=== PATIENT | female | born 1930 | race Caucasian/White ===

== ENCOUNTER 2018-02-12 12:42 | Emergency (ER) | payer MEDICAID, OTHER ==
[2018-02-12 12:59] VITALS: RESP 18; TEMP 98.1
--- NOTE | 2018-02-12 13:06 | EDPHY ---
H & P Stated Complaint: Fall from w/c, LTA Source: Patient, penitentiary records, Old records - Personal History Current Tetanus/Diphtheria Vaccine: Unsure Current Tetanus Diphtheria and Acellular Pertussis (TDAP): Unsure - Medical/Surgical History Other PMH: PMH: dementia Time Seen by Provider: 02/12/18 12:56 HPI/ROS: CHIEF COMPLAINT: Limited trauma activation, fall from wheelchair HISTORY OF PRESENT ILLNESS: The patient presents to the ED is limited trauma activation. The patient has a history of dementia and lives at a prison facility in [place]. She was recently placed in that facility following a hospitalization in [place]. The patient reportedly was started on Depakote recently for aggressive behavior. In the ED the patient is not a very reliable historian. She is unable to articulate her recent hospitalization or events surrounding her fall today. The patient does complain of a mild frontal headache. She denies any acute neck pain, back pain, chest pain or difficulty breathing. REVIEW OF SYSTEMS: A comprehensive 10 point review of systems is otherwise negative aside from elements mentioned in the history of present illness. (Lopez Bob) - Physical Exam Exam: General Appearance: Alert, no distress Head: 3 cm scalp laceration with mild soft tissue swelling Eyes: Pupils equal, round, reactive ENT, Mouth: No hemotympanum, no oral trauma Neck: In cervical collar, no midline tenderness Respiratory: No chest wall tender, subcutaneous air, lungs clear bilaterally Cardiovascular: Regular rate and rhythm Abdomen: Abdomen is soft and nontender, pelvis stable Skin: No lacerations, No abrasion Back: No midline T/L/S pain Extremities: Nontender, full range of motion Neurological: Alert and oriented x1, moves all 4 extremities with 5/5 strength (Lopez Bob) Constitutional: Initial Vital Signs Temperature (C) 36.7 C 02/12/18 12:45 Heart Rate 71 02/12/18 12:45 Respiratory Rate 18 02/12/18 12:45 Blood Pressure 166/77 H 02/12/18 12:45 O2 Sat (%) 97 02/12/18 12:45 O2 Delivery Mode Room Air Allergies/Adverse Reactions: codeine Allergy (Verified 02/12/18 12:59) Home Medications: Medication Instructions Recorded Depakote 02/12/18 Donepezil HCl 02/12/18 Namenda 10 mg 02/12/18 traZODone 02/12/18 Medical Decision Making - Diagnostics Imaging Results: Imaging Impressions Cervical Spine CT 02/12/18 12:57 Impression: 1. Scalp laceration and soft tissue swelling over the right frontal scalp. 2. Moderately advanced senescent features, with no acute intracranial abnormality identified on this unenhanced CT evaluation. UNENHANCED CT SCAN OF THE CERVICAL SPINE Technique: A multidetector unenhanced helical CT scan was obtained from the clivus caudally through the upper thoracic spine, with images reformatted at 1.50 mm increments, and are reviewed in soft tissue, bone, and lung windows. Parasagittal and paracoronal reconstructed images are reviewed on the workstation. The DFOV is 13.5 cm. A dose reduction protocol was used. Findings: The cervical vertebral body heights and posterior alignments are preserved. There is a mild levocervical curvature. There is no acute fracture, or facet malalignment. The interspinous distances are normal. The craniocervical junction is normal. The predental space, and the atlantoaxial lateral mass alignment is normal. The base and the tip of the dens are normal. There is no paravertebral or epidural hematoma identified. There is degenerative disk space narrowing at C2-C3, C3-C4, and C5-C6, with moderate bilateral facet hypertrophy at C3-C4 and C4-C5, and mild to moderate hypertrophy at C5-C6 with uncovertebral degenerative spondylosis. There is also some accompanying neural foraminal stenosis, most pronounced at C5-C6 where there is moderate right and tipikbgo-np-[id number] left neural foraminal narrowing. The prevertebral soft tissues are normal. There is biapical pleural parenchymal fibrosis. Impression: Advanced degenerative features of the spine, with no acute cervical osseous abnormality. If there is further clinical concern regarding the patient's symptoms, correlative MR imaging could be considered, if otherwise not contraindicated. Findings were discussed with Lopez Bob MD at 13:54, on 02/12/2018. Head CT 02/12/18 12:57 Impression: 1. Scalp laceration and soft tissue swelling over the right frontal scalp. 2. Moderately advanced senescent features, with no acute intracranial abnormality identified on this unenhanced CT evaluation. UNENHANCED CT SCAN OF THE CERVICAL SPINE Technique: A multidetector unenhanced helical CT scan was obtained from the clivus caudally through the upper thoracic spine, with images reformatted at 1.50 mm increments, and are reviewed in soft tissue, bone, and lung windows. Parasagittal and paracoronal reconstructed images are reviewed on the workstation. The DFOV is 13.5 cm. A dose reduction protocol was used. Findings: The cervical vertebral body heights and posterior alignments are preserved. There is a mild levocervical curvature. There is no acute fracture, or facet malalignment. The interspinous distances are normal. The craniocervical junction is normal. The predental space, and the atlantoaxial lateral mass alignment is normal. The base and the tip of the dens are normal. There is no paravertebral or epidural hematoma identified. There is degenerative disk space narrowing at C2-C3, C3-C4, and C5-C6, with moderate bilateral facet hypertrophy at C3-C4 and C4-C5, and mild to moderate hypertrophy at C5-C6 with uncovertebral degenerative spondylosis. There is also some accompanying neural foraminal stenosis, most pronounced at C5-C6 where there is moderate right and kiuiqxxk-ng-tsewrv left neural foraminal narrowing. The prevertebral soft tissues are normal. There is biapical pleural parenchymal fibrosis. Impression: Advanced degenerative features of the spine, with no acute cervical osseous abnormality. If there is further clinical concern regarding the patient's symptoms, correlative MR imaging could be considered, if otherwise not contraindicated. Findings were discussed with Lopez Bob MD at 13:54, on 02/12/2018. Procedures: Procedure: Laceration repair. Verbal consent was obtained from the patient. The 3 cm, simple, deep laceration middle forehead was anesthetized in the usual fashion using 4 mL of 0.5% bupivacaine with epinephrine. The wound was irrigated, draped and explored to its base with a gloved finger. There were no deep structures involved. No tendon injury was identified. The wound was repaired with #5, 4- 0 Vicryl. Good hemostasis was achieved and patient tolerated procedure well. The procedure was performed by myself. Sutures do not need to be removed as they are absorbable. (Carissa Valencia) ED Course/Re-evaluation: The patient presents to the ED after mechanical fall at her prison facility. She does have a 3 cm laceration on her forehead. The patient appears to be at her neurologic baseline in reviewing her records. She is confused but without acute complaints. After getting the results of the patient's CT scan I have cleared her cervical spine. The patient's laceration will be repaired by the physician program assistant. (Lopez Bob) Differential Diagnosis: Differential diagnosis considered includes intracranial hemorrhage, skull fracture, laceration, metabolic abnormality, Depakote toxicity (Lopez Bob ) - Data Points Laboratory Results: Laboratory Results 02/12/18 13:00 02/12/18 13:00 02/12/18 02/12/18 02/12/18 13:00 13:00 13:00 WBC 12.27 10^3/uL H 10^3/uL (3.80-9.50) RBC 4.45 10^6/uL 10^6/uL (4.18-5.33) Hgb 14.6 g/dL g/dL (12.6-16.3) Hct 44.9 % % (38.0-47.0) MCV 100.9 fL H fL (81.5-99.8) MCH 32.8 pg pg (27.9-34.1) MCHC 32.5 g/dL g/dL (32.4-36.7) RDW 12.9 % % (11.5-15.2) Plt Count 157 10^3/uL 10^3/uL (150-400) MPV 11.7 fL fL (8.7-11.7) Neut % (Auto) 77.9 % H % (39.3-74.2) Lymph % (Auto) 9.9 % L % (15.0-45.0) [place] % (Auto) 10.5 % % (4.5-13.0) Eos % (Auto) 0.8 % % (0.6-7.6) Baso % (Auto) 0.2 % L % (0.3-1.7) Nucleat RBC Rel Count 0.0 % % (0.0-0.2) Absolute Neuts (auto) 9.55 10^3/uL H 10^3/uL (1.70-6.50) Absolute Lymphs (auto) 1.21 10^3/uL 10^3/uL (1.00-3.00) Absolute Monos (auto) 1.29 10^3/uL H 10^3/uL (0.30-0.80) Absolute Eos (auto) 0.10 10^3/uL 10^3/uL (0.03-0.40) Absolute Basos (auto) 0.03 10^3/uL 10^3/uL (0.02-0.10) Absolute Nucleated RBC 0.00 10^3/uL 10^3/uL (0-0.01) Immature Gran % 0.7 % % (0.0-1.1) Immature Gran # 0.09 10^3/uL 10^3/uL (0.00-0.10) Sodium 152 mEq/L H mEq/L (135-145) Potassium 3.3 mEq/L L mEq/L (3.5-5.2) Chloride 111 mEq/L H mEq/L (97-110) Carbon Dioxide 31 mEq/l mEq/l (22-31) Anion Gap 10 mEq/L mEq/L (8-16) BUN 22 mg/dL mg/dL (7-23) Creatinine 1.3 mg/dL H mg/dL (0.6-1.0) Estimated GFR 39 Glucose 104 mg/dL H mg/dL (70-100) Calcium 11.3 mg/dL H mg/dL (8.5-10.4) Phosphorus 2.2 mg/dL L mg/dL (2.5-4.5) Valproic Acid 118.7 mcg/mL mcg/mL (50.0-150.0) Medications Given: Discontinued Medications Sodium Chloride (Ns) 1,000 mls @ 0 mls/hr IV EDNOW ONE; Wide Open PRN Reason: Protocol Stop: 02/12/18 14:27 Last Admin: 02/12/18 14:36 Dose: Not Given Departure - Departure Disposition: Home, Routine, Self-Care Clinical Impression: Forehead laceration, Fall Condition: Good Instructions: Laceration (ED) Additional Instructions: 1. Your CT scan demonstrates no evidence of fracture or bleed. 2. You had self-dissolving sutures placed in the emergency department. 3. Please try and increase your fluid intake as there is evidence of mild dehydration. 4. Please follow-up with your primary care provider as scheduled. 5. Please return to the ED for any vomiting, abnormal behavior, new pain or other concerns. Referrals: CORINA JOHANSEN [Other] - As per Instructions
[2018-02-12 13:30] LABS: PLATELET COUNT 157 10^3/uL (150-400)
[2018-02-12 14:07] VITALS: BP 133/76; PULSE 80; O2SAT 93
[2018-02-12] MEDS ORDERED: NS 1,000 ML IV ONE (14:26)
--- NOTE | 2018-02-12 15:57 | ASMTCMCOM ---
CM Note CM Note Notes: Pt arrived to ED, from [facility], as a Limited Trauma Activation after falling out of her wheelchair. Pt currently disoriented & unable to clearly communicate. Spoke with Екатерина, at [facility]; confirmed pt is currently there doing rehab & will eventually transition into snf care. Екатерина reports pt has a daughter/MDPOA, Lizbeth Miranda. Екатерина provided this CM with Lizbeth's number ([phone]); attempted to call number but it was disconnected. Alerted Екатерина; Екатерина reports that is the only number [facility] has on file for Lizbeth. Екатерина to update Lizbeth that pt was seen, at [facility] ED, once she is able to make contact. Екатерина also reports pt was recently started on Depakote 500 mg TID for "behaviors". Updated RN & MD. Date Signed: 02/12/2018 03:55 PM Electronically Signed By:Padma Cueto RN
== END 2018-02-12 15:45 | disposition home or self-care (01) ==
DX: S01.81XA Laceration without foreign body of other part of head, initial encounter (principal); W05.0XXA Fall from non-moving wheelchair, initial encounter; Y92.128 Other place in nursing home as the place of occurrence of the external cause
CPT/HCPCS: G0390

== ENCOUNTER 2018-03-02 11:52 | Emergency (ER) | payer OTHER ==
--- NOTE | 2018-03-02 13:09 | EDPHY ---
H & P Stated Complaint: [facility] fall Time Seen by Provider: 03/02/18 13:02 HPI/ROS: CHIEF COMPLAINT: Fall HISTORY OF PRESENT ILLNESS: The patient is an 87-year-old female history of dementia was currently on hospice. She fell today and has a laceration to her left eyebrow as well as skin tear to her left cheek and left forearm. She is here with her hospice who is requesting that we do not do any diagnostic testing but simply clean and dress her wounds and sutured her eyebrow. The patient is at her baseline mental status. She is not on any blood thinners. No recent illness. REVIEW OF SYSTEMS: Unable to obtain secondary to condition EXAM: GENERAL: Well-appearing, well-nourished and in no acute distress. HEAD: Atraumatic other than eyebrow laceration, normocephalic. EYES: Pupils equal round and reactive to light, extraocular movements intact, sclera anicteric, conjunctiva are normal. ENT: TMs normal, nares patent, oropharynx clear without exudates. Moist mucous membranes. NECK: Normal range of motion, supple without lymphadenopathy or JVD. LUNGS: Breath sounds clear to auscultation bilaterally and equal. No wheezes rales or rhonchi. HEART: Regular rate and rhythm without murmurs, rubs or gallops. ABDOMEN: Soft, nontender, normoactive bowel sounds. No guarding, no rebound. No masses appreciated. BACK: No CVA tenderness, no spinal tenderness, step-offs or deformities EXTREMITIES: Normal range of motion, no pitting or edema. No clubbing or cyanosis. NEUROLOGICAL: Cranial nerves II through XII grossly intact. Nonverbal. Moving all extremities, normal sensation PSYCH: Nonverbal SKIN: Laceration left eyebrow, skin tear left cheek and left forearm. Source: Patient Exam Limitations: No limitations - Personal History Current Tetanus Diphtheria and Acellular Pertussis (TDAP): Unsure - Medical/Surgical History Hx Asthma: No Hx Chronic Respiratory Disease: No Hx Cirrhosis: No Hx Alcoholism: No Other PMH: PMH: dementia, CKD, dysphagia - Family History Significant Family History: No pertinent family hx - Social History Alcohol Use: Sober Drug Use: None Constitutional: Initial Vital Signs Temperature (C) 37 C 03/02/18 11:58 Heart Rate 68 04/10/18 11:58 Respiratory Rate 16 03/02/18 11:58 Blood Pressure 122/66 H 03/02/18 11:58 O2 Sat (%) 94 03/02/18 11:58 O2 Delivery Mode Room Air Allergies/Adverse Reactions: codeine Allergy (Verified 02/12/18 12:59) Home Medications: Medication Instructions Recorded Depakote 02/12/18 Donepezil HCl 02/12/18 Namenda 10 mg 02/12/18 traZODone 02/12/18 Medical Decision Making Procedures: Procedure: Laceration repair. Verbal consent was obtained from the patient. The 2 cm left eyebrow laceration was anesthetized with 1% lidocaine with epi and bicarbonate locally infiltrated. The wound was irrigated copiously according to protocol, draped and explored to its base. It was approximately 1 cm deep. There were no deep structures involved. No tendon, nerve, or vascular injury was identified when explored through full range of motion. No foreign body was identified. The wound was repaired with 5.0 chromic gut, 3 sutures, interrupted. The wound repair was moderate complexity with slight flap realignment and revision. The procedure was performed by myself. A dressing was then placed with sterile gauze and bacitracin. ED Course/Re-evaluation: The patient's laceration was repaired and skin tears were cleaned and dressed and antibiotic ointment placed. Her hospice nurse is at her bedside and confirms that they do not want any further testing done her treatment and that she is [facility]. They have also been on the phone with her family who agrees. She states that the patient is on hospice for severe Alzheimer's disease. Differential Diagnosis: Partial list of the Differential diagnosis considered include but were not limited to; laceration, skin tear, fall and although unlikely based on the history and physical exam, I also considered intracranial injury, cervical spine injury, infection, seizure. Departure - Departure Disposition: Home, Routine, Self-Care Clinical Impression: Skin tear of left upper extremity Laceration of eyebrow, left Qualifiers: Encounter type: initial encounter Qualified Code(s): S01.112A - Laceration without foreign body of left eyelid and periocular area, initial encounter Condition: Fair Instructions: Laceration (DC), Skin Tear (ED) Additional Instructions: Your sutures should dissolve within 5 days, if they do not return to have them removed. Referrals: Patient,NotPresent [Primary Care Provider] - As per Instructions
--- NOTE | 2018-03-02 15:14 | ASMTCMCOM ---
CM Note CM Note Notes: Pt presented to the ED via EMS from [facility] after having a fall in her room and hitting her head. Patient was just enrolled with [facility] yesterday. [facility]la [facility] at bedside with patient. Pt has Alzheimer's is AxOx1 and needs redirection in order for her to not try to get out bed or take off wound dressings, etc. This CM arranged NEMT stretcher transport through [facility] for pt to return to ; PCS completed, copy provided to EMS, original to be scanned into chart. CM available for further assistance if needed. Date Signed: 03/02/2018 03:13 PM Electronically Signed By:Sandy Boothe RN
--- NOTE | 2018-03-02 15:32 | ASDISCHSUM ---
Discharge Information Plan Status:SNF Medically Cleared to Leave: Discharge Date: D/C Disposition:Detention Facility ADT D/C Disposition:Home, Routine, Self-Care Projected Discharge Date: Transportation at D/C:ALS/BLS Discharge Delay Reason: Follow-Up Date: Discharge Slot: Final Diagnosis: Placement Information Patient Contact Information Contact Name:CHRISTIE Relationship:Daughter Address: Work Phone: City: [facility] Phone: State/Zip Code: Email: Financial Information Financial Class:Medicare Advantage [place] Records Primary Plan Desc:[employer] Primary Plan Number:[id number] Secondary Plan Desc:MEDICARE OUTPATIENT Secondary Plan Number:[id number] Assessment Information [facility] CM Progress Note CM Note CM Note Notes: Pt presented to the ED via EMS from [facility] after having a fall in her room and hitting her head. Patient was just enrolled with [facility] yesterday. Makayla, [facility] at bedside with patient. Pt has Alzheimer's is AxOx1 and needs redirection in order for her to not try to get out bed or take off wound dressings, etc. This CM arranged NEMT stretcher transport through [facility] for pt to return to ; PCS completed, copy provided to EMS, original to be scanned into chart. CM available for further assistance if needed. Date Signed: 03/02/2018 03:13 PM Electronically Signed By:Sandy Boothe RN Intervention Information Intervention Type:Transportation Date of Service:03/02/2018 03:27 PM Patient Type:Emergency Room Staff Member:KATHERINE Boothe, Sandy Hours:0.5 Discipline:Whirley Operator Severity: Comment:Arranged NEMT stretcher transport for pt to return to [facility]. PCS completed; copy given to EMS.
[2018-03-02 15:43] VITALS: BP 122/67
== END 2018-03-02 15:48 | disposition home or self-care (01) ==
LOC: EDUNIT#
PROC: 0HQ1XZZ Repair Face Skin, External Approach (ICD-10-PCS; principal; 2018-03-02)
DX: S01.112A Laceration without foreign body of left eyelid and periocular area, initial encounter (principal); S51.812A Laceration without foreign body of left forearm, initial encounter; W18.39XA Other fall on same level, initial encounter

== ENCOUNTER 2018-03-18 14:52 | Emergency (ER) | payer OTHER ==
--- NOTE | 2018-03-18 15:11 | EDPHY ---
H & P Stated Complaint: fall head lac - Personal History Current Tetanus/Diphtheria Vaccine: Yes Current Tetanus Diphtheria and Acellular Pertussis (TDAP): Yes - Medical/Surgical History Hx Asthma: No Hx Chronic Respiratory Disease: No Hx Diabetes: No Hx Cardiac Disease: No Hx Renal Disease: Yes Hx Cirrhosis: No Hx Alcoholism: No Hx HIV/AIDS: No Hx Splenectomy or Spleen Trauma: No Other PMH: PMH: dementia, CKD, dysphagia - Social History Smoking Status: Never smoked Time Seen by Provider: 03/18/18 15:10 Constitutional: Initial Vital Signs Temperature (C) 37.1 C 03/18/18 14:55 Heart Rate 68 03/18/18 14:55 Respiratory Rate 18 03/18/18 14:55 Blood Pressure 115/57 L 03/18/18 14:55 O2 Sat (%) 95 03/18/18 14:55 O2 Delivery Mode Room Air Allergies/Adverse Reactions: codeine Allergy (Verified 02/12/18 12:59) Home Medications: Medication Instructions Recorded Depakote 02/12/18 Medical Decision Making Procedures: Procedure: Laceration repair. I was requested by Dr. Britt to perform wound closure I explained the indications, risks and benefits for both laceration repair and anesthetic administration. Verbal consent was obtained from the patient . The laceration on the apex of scalp was anesthetized using 0.5% bupivicaine with epinephrine . After anesthetic administered the patient was observed for a period of time and had no apparent adverse effects. The wound was cleaned, prepped, draped in normal sterile fashion and explored to its base. No foreign body seen, no foreign bodies palpated. There were no deep structures involved. No galea defects identified The wound was repaired with 11 adis. The wound repair was complex. The procedure was performed by myself. Patient has been informed that scarring will occur, although efforts have been made to minimize this. (Chevy Cason) ED Course/Re-evaluation: CHIEF COMPLAINT: Fall, hit head HISTORY OF PRESENT ILLNESS: The patient is an 87 y/o female with a history of Alzheimer's disease and chronic kidney disease arriving for a head laceration. She is a hospice patient and has fallen several times in the past few months. Today, she stood up out of her wheelchair and fell, striking her head on the nurse's cart handle. She has a head laceration. She denies any other associated symptoms. She does not take anticoagulants. Information obtained from hospice nurse due to patient's Alzheimer disease. REVIEW OF SYSTEMS: A 10 point review of systems was performed and is negative with the exception of the elements mentioned in the history of present illness. PHYSICAL EXAM: HR, BP, O2 Sat, RR. Temp noted General Appearance: Alert, well hydrated, appropriate, and non-toxic appearing. Head: 4 cm in a zig-zag pattern to the top of the head Eyes: Pupils equal, round, reactive to light and accommodation, EOMI, no trauma , no injection. Ears: Clear bilaterally, no perforation, normal landmarks Nose: Atraumatic. Neck: Supple, no lymphadenopathy. Respiratory: No retractions, no distress, no wheezes, and no accessory muscle use. Cardiovascular: Regular rate and rhythm, no murmurs, rubs, or gallops. Gastrointestinal: Abdomen is soft, nontender, non-distended, no masses, no rebound, no guarding, no peritoneal signs. Musculoskeletal: Normal active ROM of all extremities, atraumatic. Neurological: Alert, appropriate, and interactive. Skin: No rashes, normal to visual inspection. Past medical history: Alzheimer's disease, kidney disease, dysphagia Past surgical history: Denies Family history: Non-contributory Social history: Hospice patient, hospice nurse at bedside, lives in [facility] DIFFERENTIAL DIAGNOSIS: The differential diagnosis for the patient's head injury included but was not limited to scalp laceration, concussion, skull fracture, intra-parenchymal contusion, subarachnoid, subdural and epidural hematoma. MEDICAL DECISION MAKING: The patient is an 87 y/o female on hospice arriving for a head laceration after a fall. She denies any other associated symptoms. Her scalp laceration is about 4 cm in length in a zig-zag pattern on the top of her head. She does not take anticoagulants. I discussed a head CT with the hospice nurse at bedside. She confirmed with the patient's daughter that she will not have a CT as they would not treat any findings. Plan for repair of head laceration by Amanda BEAN. (Pop Britt) Departure - Departure Disposition: Home, Routine, Self-Care Clinical Impression: Laceration of head Qualifiers: Encounter type: initial encounter Location of open wound of head: scalp Foreign body presence: without foreign body Qualified Code(s): S01.01XA - Laceration without foreign body of scalp, initial encounter Condition: Good Instructions: Care For Your Stitches (ED), Laceration (ED) Additional Instructions: 1. Please return in 7 to 10 days for your staple removal. Keep the area clean until then. 2. Return to the emergency department for any signs of infection or other worsening of condition. Referrals: Patient,NotPresent [Primary Care Provider] - As per Instructions Roxi Wylie MD [place] [place] - As per Instructions Report Scribed for: Pop Britt Report Scribed by: Angela Tong Date of Report: 03/18/18 Time of Report: 15:56
[2018-03-18 16:20] VITALS: BP 132/65
--- NOTE | 2018-03-18 16:30 | ASMTCMCOM ---
CM Note CM Note Notes: Patient admitted for repair of a head laceration after she fell. She lives at [facility]. Has Alzheimer's. Her [facility] tax manager public Paz was here with her briefly. She will have the on-call settlement worker meet the patient back at [facility] this evening. I spoke with patient's daughter Lizbeth and notified her of the above. [facility] will transport patient back to [facility]. Екатерина @ notified. Date Signed: 03/18/2018 04:30 PM Electronically Signed By:Madina Dang RN
== END 2018-03-18 16:59 | disposition home or self-care (01) ==
LOC: EDUNIT#
PROC: 0HQ0XZZ Repair Scalp Skin, External Approach (ICD-10-PCS; principal; 2018-03-18)
DX: S01.01XA Laceration without foreign body of scalp, initial encounter (principal); G30.9 Alzheimer's disease, unspecified; N18.9 Chronic kidney disease, unspecified; W05.0XXA Fall from non-moving wheelchair, initial encounter; Y99.8 Other external cause status; Y93.89 Activity, other specified